=== PATIENT | male | born 1980 | race Native Hawaiian/Other Pacific Islander ===

== ENCOUNTER 2020-11-06 17:18 | Outpatient (CLI) | payer OTHER | END 2020-11-06 21:33 | disposition home or self-care (01) | LOC: RAD 17:18 | PROVIDERS: ATTEND Nurse Practitioner Family | DX: M79.672 Pain in left foot (principal) ==

== ENCOUNTER 2022-08-26 18:01 | Emergency (ER) | payer BC ==
[~2022-08-26] VITALS: Ht 175.3 cm; Wt 132.9 kg
[2022-08-26 18:05] VITALS: TEMP 98.2
[2022-08-26 19:06] LABS: PLATELET COUNT 212 K/uL (142-355)
[2022-08-26 19:20] LABS: POTASSIUM 4.2 mmol/L (3.6-5.2)
[2022-08-26 20:30] VITALS: BP 153/80
== END 2022-08-26 20:30 | disposition home or self-care (01) ==
LOC: ED 18:01
PROVIDERS: Emergency Medicine Emergency Medical Services
DX: N23 Unspecified renal colic (principal)
CPT/HCPCS: 36415; 80048; 81002; 85027; 96361; 96374; 96375; 99284; J1885; J2270; J2405